=== PATIENT | male | born 1935 | race Caucasian/White ===

== ENCOUNTER 2017-09-07 21:36 | Emergency (ER) | payer MEDICARE, OTHER ==
[2017-09-07 21:51] VITALS: BP 158/70
--- NOTE | 2017-09-08 00:38 | EDM.PDOC ---
ED HPI GENERAL MEDICAL PROBLEM - General Chief Complaint: Respiratory Problem Stated Complaint: OUT OF BREATH Time Seen by Provider: 09/07/17 23:04 Source of Information: Reports: Patient, Family (), RN Notes Reviewed History Limitations: Reports: No Limitations - History of Present Illness INITIAL COMMENTS - FREE TEXT/NARRATIVE: The patient states that he has had dyspnea at rest as well as dyspnea on exertion for approximately 2 weeks, progressively worsening. He saw his PCP, Dr. Hyman, on 08/25/2017, and was prescribed a seven-day course of prednisone and a Z-Brian. He states that his symptoms significantly improved while he was on prednisone, but that they recurred once the prednisone was finished. He states that he has had a dry cough, and that he has been wheezing. He reports orthopnea, although is currently lying supine on the gurney and states that he is comfortable. No recent fever. The patient denies recent lower extremity edema. The patient states that he was given a presumptive diagnosis of COPD around 2004 , following nasal polyp surgery. He has been prescribed albuterol by MDI and Xopenex by nebulizer, along with Advair, but states that he is noncompliant with these medications. He states that due to his worsening symptoms, however, he restarted using his Advair twice a day over the last 2 days, and his Xopenex twice a day for the past 2-3 days. He states that he used his albuterol MDI twice today, however, when I asked him to demonstrate his use, he was not using it properly, at all. The patient states that he has not previously been evaluated by a [facility] , and has not previously undergone pulmonary function tests. The patient states that he did not received an influenza vaccine this season. The patient's PCP is Dr. Hyman. - Related Data Allergies Allergy/AdvReac Type Severity Reaction Status Date / Time perfume Allergy Sneezing Uncoded 09/07/17 21:47 Home Meds: Home Meds Allopurinol [Zyloprim] 100 mg PO DAILY 11/24/16 [History] Losartan/Hydrochlorothiazide [Losartan-HCTZ 50-12.5 MG] 1 each PO DAILY [History] Advair Inhaler. 1 puff INH BID 09/07/17 [History] Past Medical History Cardiovascular History: Reports: High Cholesterol (untreated), Hypertension ( noncompliant with medication) Respiratory History: Reports: COPD (Suspected, not confirmed. Noncompliant with medications.) Gastrointestinal History: Reports: PUD Genitourinary History: Reports: Chronic Renal Insuffiency Musculoskeletal History: Reports: Gout (suspected, not confirmed) - Past Surgical History HEENT Surgical History: Reports: Cataract Surgery, Naso-Sinus Surgery (nasal polyps, 2005), Oral Surgery ([place] teeth extraction) GI Surgical History: Reports: Hernia, Abdominal (dave-umbilical), Hernia, Inguinal (right) Musculoskeletal Surgical History: Reports: Knee Replacement (right) Social & Family History - Family History Family Medical History: Noncontributory - Tobacco Use Smoking Status *Q: Former Smoker Years of Tobacco use: 15 Packs/Tins Daily: 0.5 Month Tobacco Last Used: Quit 1976 Second Hand Smoke Exposure: No - Caffeine Use Caffeine Use: Reports: None Other Caffeine Use: has a soda every once in awhile - Alcohol Use Alcohol Use History: No - Recreational Drug Use Recreational Drug Use: No - Living Situation & Occupation Living situation: Reports: , with Spouse Occupation: Employed ([employer]) ED ROS GENERAL - Review of Systems Review Of Systems: See Below Constitutional: Reports: No Symptoms. Denies: Fever HEENT: Reports: No Symptoms Respiratory: Reports: Shortness of Breath (as per the HPI), Wheezing (as per the HPI), Cough (as per the HPI) Cardiovascular: Reports: No Symptoms, Dyspnea on Exertion (as per the HPI) Endocrine: Reports: No Symptoms GI/Abdominal: Reports: No Symptoms : Reports: No Symptoms Musculoskeletal: Reports: No Symptoms Skin: Reports: No Symptoms Neurological: Reports: No Symptoms Psychiatric: Reports: No Symptoms Hematologic/Lymphatic: Reports: No Symptoms Immunologic: Reports: No Symptoms ED EXAM, GENERAL - Physical Exam Exam: See Below Exam Limited By: No Limitations General Appearance: Alert, WD/WN, No Apparent Distress Eye Exam: Bilateral Eye: Normal Inspection Ears: Normal External Exam, Hearing Grossly Normal Nose: Normal Inspection, No Blood Throat/Mouth: Normal Inspection, Normal Lips, Normal Voice, No Airway Compromise Head: Atraumatic, Normocephalic Neck: Normal Inspection, Full Range of Motion Respiratory/Chest: No Respiratory Distress, No Accessory Muscle Use, Decreased Breath Sounds, Prolonged Expiration (SLIGHT, if any). No: Crackles, Rhonchi, Wheezing Cardiovascular: Normal Peripheral Pulses, Regular Rate, Rhythm, No Gallop, No JVD, No Murmur, No Rub Peripheral Pulses: 4+: Radial (R), Femoral (L) GI/Abdominal: Normal Bowel Sounds, Soft, Non-Tender, No Organomegaly, No Distention, No Abnormal Bruit, No Mass (Male) Exam: Deferred Rectal (Males) Exam: Deferred Back Exam: Normal Inspection, Full Range of Motion, NT Extremities: Normal Inspection, Normal Range of Motion, Non-Tender, Normal Capillary Refill, Other (1-2+ pitting pretibial edema bilaterally) Neurological: Alert, Oriented, Normal Cognition, No Motor/Sensory Deficits Psychiatric: Normal Affect Skin Exam: Warm, Dry, Intact, Normal Color, No Rash EKG INTERPRETATION EKG Date: 09/08/17 Time: 00:01 Rhythm: Other (Sinus bradycardia) Rate (Beats/Min): 59 [place]: Normal P-Wave: Present QRS: Normal ST-T: Normal QT: Normal Comparison: NA - No Prior EKG Course - Vital Signs Last Recorded V/S: Last Vital Signs Temp 36.9 C 09/07/17 21:47 Pulse 64 09/07/17 21:47 Resp 20 09/07/17 21:47 BP 158/70 H 09/07/17 21:47 Pulse Ox 92 L 09/07/17 21:47 - Orders/Labs/Meds Orders: Active Orders 24 hr Category Date Time Status EKG Documentation Completion [RC] STAT Care 09/07/17 23:30 Active Ang Chest [CT] Stat Exams 09/08/17 01:06 Taken Chest 2V [CR] Stat Exams 09/07/17 23:30 Ordered CULTURE BLOOD [BC] Stat Lab 09/07/17 23:50 Received CULTURE BLOOD [BC] Stat Lab 09/07/17 23:57 Received Sodium Chloride 0.9% [Normal Saline] 1,000 ml Med 09/08/17 01:15 Active IV ASDIRECTED Sodium Chloride 0.9% [Normal Saline] 100 ml Med 09/08/17 01:45 Active IV ASDIRECTED Sodium Chloride 0.9% [Saline Flush] Med 09/08/17 01:31 Active 10 ml FLUSH ONETIME PRN Blood Culture x2 Reflex Set [OM.PC] Stat Oth 09/07/17 23:30 Ordered Medication Orders Sodium Chloride (Normal Saline) 1,000 mls @ 150 mls/hr IV ASDIRECTED RONALD Last Admin: 09/08/17 01:14 Dose: 150 mls/hr Sodium Chloride (Normal Saline) 100 mls @ 80 mls/hr IV ASDIRECTED RONALD Last Admin: 09/08/17 01:42 Dose: 80 mls/hr Sodium Chloride (Saline Flush) 10 ml FLUSH ONETIME PRN PRN Reason: IV FLUSH Last Admin: 09/08/17 01:42 Dose: 10 ml Labs: Laboratory Tests 09/07/17 09/07/17 09/07/17 Range/Units 23:38 23:57 23:57 WBC 6.85 (4.23-9.07) K/mm3 RBC 3.77 L (4.63-6.08) M/mm3 Hgb 12.0 L (13.7-17.5) gm/L Hct 36.4 L (40.1-51.0) % MCV 96.6 H (79.0-92.2) fl MCH 31.8 (25.7-32.2) pg MCHC 33.0 (32.2-35.5) g/dl RDW Std Deviation 45.1 H (35.1-43.9) fL Plt Count 135 L (163-337) K/mm3 MPV 9.9 (9.4-12.3) fl Neutrophils % (Manual) 62 H (40-60) % Band Neutrophils % 0 (0-10) % Lymphocytes % (Manual) 14 L (20-40) % Atypical Lymphs % 0 % Monocytes % (Manual) 11 H (2-10) % Eosinophils % (Manual) 12 H (0.8-7.0) % Basophils % (Manual) 1 (0.2-1.2) Platelet Estimate Adequate Plt Morphology Comment Normal RBC Morph Comment Normal PT 10.1 (8.0-13.0) SECONDS INR 0.93 APTT 27 (22-36) SECONDS D-Dimer, Quantitative 1.13 H (0.19-0.59) mg/L Puncture Site Rt brachial ABG pH 7.40 (7.35-7.45) ABG pCO2 39.6 (35.0-45.0) mmHg ABG pO2 64.0 L (80.0-100.0) mmHg ABG HCO3 23.9 (22.0-26.0) meq/L ABG O2 Saturation 90.6 L (96.0-97.0) % ABG Base Excess -0.3 (-2-2.0) A-a Gradient 21 mmHg FiO2 21.00 (21.00-100.00) % Sodium (136-145) mEq/L Potassium (3.5-5.1) mEq/L Chloride (98-107) mEq/L Carbon Dioxide (21-32) mEq/L Anion Gap (5-15) BUN (7-18) mg/dL Creatinine (0.7-1.3) mg/dL Est Cr Clr Drug Dosing mL/min Estimated GFR (MDRD) (>60) mL/min BUN/Creatinine Ratio (14-18) Glucose (83-115) mg/dL Lactic Acid (0.4-2.0) mmol/L Calcium (8.5-10.1) mg/dL Total Bilirubin (0.2-1.0) mg/dL AST (15-37) U/L ALT (16-63) U/L Alkaline Phosphatase (46-116) U/L Troponin I (0.00-0.056) ng/mL NT-Pro-B Natriuret Pep (0-450) pg/mL Total Protein (6.4-8.2) g/dl Albumin (3.4-5.0) g/dl Globulin gm/dL Albumin/Globulin Ratio (1-2) 09/07/17 09/07/17 Range/Units 23:57 23:57 WBC (4.23-9.07) K/mm3 RBC (4.63-6.08) M/mm3 Hgb (13.7-17.5) gm/L Hct (40.1-51.0) % MCV (79.0-92.2) fl MCH (25.7-32.2) pg MCHC (32.2-35.5) g/dl RDW Std Deviation (35.1-43.9) fL Plt Count (163-337) K/mm3 MPV (9.4-12.3) fl Neutrophils % (Manual) (40-60) % Band Neutrophils % (0-10) % Lymphocytes % (Manual) (20-40) % Atypical Lymphs % % Monocytes % (Manual) (2-10) % Eosinophils % (Manual) (0.8-7.0) % Basophils % (Manual) (0.2-1.2) Platelet Estimate Plt Morphology Comment RBC Morph Comment PT (8.0-13.0) SECONDS INR APTT (22-36) SECONDS D-Dimer, Quantitative (0.19-0.59) mg/L Puncture Site ABG pH (7.35-7.45) ABG pCO2 (35.0-45.0) mmHg ABG pO2 (80.0-100.0) mmHg ABG HCO3 (22.0-26.0) meq/L ABG O2 Saturation (96.0-97.0) % ABG Base Excess (-2-2.0) A-a Gradient mmHg FiO2 (21.00-100.00) % Sodium 144 (136-145) mEq/L Potassium 3.8 (3.5-5.1) mEq/L Chloride 108 H (98-107) mEq/L Carbon Dioxide 25 (21-32) mEq/L Anion Gap 14.8 (5-15) BUN 27 H (7-18) mg/dL Creatinine 1.5 H (0.7-1.3) mg/dL Est Cr Clr Drug Dosing 40.56 mL/min Estimated GFR (MDRD) 45 (>60) mL/min BUN/Creatinine Ratio 18.0 (14-18) Glucose 100 (83-115) mg/dL Lactic Acid 0.9 (0.4-2.0) mmol/L Calcium 8.9 (8.5-10.1) mg/dL Total Bilirubin 0.5 (0.2-1.0) mg/dL AST 18 (15-37) U/L ALT 21 (16-63) U/L Alkaline Phosphatase 86 (46-116) U/L Troponin I < 0.017 (0.00-0.056) ng/mL NT-Pro-B Natriuret Pep 94 (0-450) pg/mL Total Protein 6.8 (6.4-8.2) g/dl Albumin 3.3 L (3.4-5.0) g/dl Globulin 3.5 gm/dL Albumin/Globulin Ratio 0.9 L (1-2) Meds: Medications Generic Name Dose Route Start Last Admin Trade Name Freq PRN Reason Stop Dose Admin Sodium Chloride 1,000 mls @ 150 mls/hr 09/08/17 01:15 09/08/17 01:14 Normal Saline IV 150 mls/hr ASDIRECTED RONALD Administration Sodium Chloride 100 mls @ 80 mls/hr 09/08/17 01:45 09/08/17 01:42 Normal Saline IV 80 mls/hr ASDIRECTED RONALD Administration Sodium Chloride 10 ml 09/08/17 01:31 09/08/17 01:42 Saline Flush FLUSH 10 ml ONETIME PRN Administration IV FLUSH Discontinued Medications Generic Name Dose Route Start Last Admin Trade Name Freq PRN Reason Stop Dose Admin Iopamidol 100 ml 09/08/17 01:31 09/08/17 01:42 Isovue-370 (76%) IVPUSH 09/08/17 01:32 70 ml ONETIME ONE Administration - Re-Assessments/Exams Free Text/Narrative Re-Assessment/Exam: 09/08/17 00:22 Two-view chest radiograph appears to be grossly normal. Cardiac silhouette is within normal limits. No pulmonary vascular congestion. No pleural effusions. No focal infiltrate, although there may be a small amount of atelectasis at the right base. No pneumothorax. Formal read per the Radiologist pending. 09/08/17 01:07 The patient's D-dimer has returned elevated at 1.13. This could be the result of chronic kidney disease, as his BUN/Cr is elevated at 27/1.5, however, I cannot rule out a PE. I have therefore ordered a CT angiogram of the chest to evaluate for PE, along with IV fluid. 09/08/17 01:58 CT angiogram of the chest is read by [facility] as: 1. No evidence of pulmonary emboli 2. Mild pulmonary fibrotic changes 3. Mild postinflammatory changes in the lung bases 4. Cholelithiasis 5 hepatic cysts 6. Small hiatal hernia 09/08/17 02:26 Test results discussed with the patient and his . Today's workup is, for the most part, unremarkable. It does not appear that the patient is suffering from a COPD exacerbation, as he did not have prolonged exhalation or wheezes on examination, and his ABG does not show an elevated CO2 level, indeed, it does not appear that the patient even has COPD, as no COPD changes were seen on either the chest radiograph or CT scan. The CT scan, however, did find pulmonary scarring and mucus plugging, which is what I suspect is causing the patient's symptoms. I am therefore recommending that the patient continue using his Advair twice a day, and if he has worsening shortness of breath, he can try the Xopenex nebulizer, but if it does not work, to not use it. I'm recommending that he not use the albuterol MDI, as this technique is so poor that no medication would actually get into his lungs. We discussed the option of a spacer chamber, but this would not work for him, as he would not be able to fit it in his pocket when out of the house. I will discharge the patient home with a referral to a [facility]. As he has chronic kidney disease, and just received iodinated contrast, I recommended that he stay well hydrated for the next week. Departure - Departure Time of Disposition: 02:30 Disposition: Home, Self-Care 01 Condition: Good Clinical Impression: Shortness of breath, Pulmonary fibrosis, Chronic kidney disease - Discharge Information Referrals: Cory Multani MD [Primary Care Provider] - Varun Merchant MD [Ordering Only Provider] - Forms: ED Department Discharge Additional Instructions: You were seen in the emergency room for shortness of breath and a dry cough. Workup in the ER included blood work, 2 sets of blood cultures, an arterial blood gas, an influenza swab, an ECG, a chest x-ray, and a CT angiogram of your chest. Your workup found that you have mild impairment of your kidneys, and scarring of your lungs with mucous plugs. The remainder of your workup was unremarkable. You do not have pneumonia. You have not had a heart attack. You do not have a blood clot in your lungs. You do not have congestive heart failure. You do not have influenza. It is important that you stay well hydrated for the next week. Make sure that your urine is light, like lemonade, not dark, like apple juice. Your symptoms are MOST LIKELY due to lung scarring and mucous plugging. We recommend that you continue taking the Advair twice a day, as prescribed. For worsening shortness of breath, you can try using the Xopenex by nebulizer, but if it is not working, you do not need to continue to use it. Try to avoid exposure to dust as much as possible. Follow-up with the [facility] (lung doctor) Dr. Merchant at the next available appointment. If any other problems, please do not hesitate to return to the ER. - My Orders Last 24 Hours: My Active Orders 09/07/17 23:30 EKG Documentation Completion [RC] STAT Chest 2V [CR] Stat Blood Culture x2 Reflex Set [OM.PC] Stat 09/07/17 23:50 CULTURE BLOOD [BC] Stat 09/07/17 23:57 CULTURE BLOOD [BC] Stat 09/08/17 01:06 Ang Chest [CT] Stat 09/08/17 01:15 Sodium Chloride 0.9% [Normal Saline] 1,000 ml IV ASDIRECTED 09/08/17 01:31 Sodium Chloride 0.9% [Saline Flush] 10 ml FLUSH ONETIME PRN 09/08/17 01:45 Sodium Chloride 0.9% [Normal Saline] 100 ml IV ASDIRECTED - Assessment/Plan Last 24 Hours: My Active Orders 09/07/17 23:30 EKG Documentation Completion [RC] STAT Chest 2V [CR] Stat Blood Culture x2 Reflex Set [OM.PC] Stat 09/07/17 23:50 CULTURE BLOOD [BC] Stat 09/07/17 23:57 CULTURE BLOOD [BC] Stat 09/08/17 01:06 Ang Chest [CT] Stat 09/08/17 01:15 Sodium Chloride 0.9% [Normal Saline] 1,000 ml IV ASDIRECTED 09/08/17 01:31 Sodium Chloride 0.9% [Saline Flush] 10 ml FLUSH ONETIME PRN 09/08/17 01:45 Sodium Chloride 0.9% [Normal Saline] 100 ml IV ASDIRECTED
[2017-09-08] MEDS ORDERED: Sodium Chloride 0.9% 1,000 ML IV SCH (01:15)
[2017-09-08] MEDS ORDERED: Iopamidol 755 Mg/ML 100 ML Bottle IVPUSH ONE (01:31)
[2017-09-08] MEDS ORDERED: Sodium Chloride 0.9% 10 ML Syringe FLUSH PRN (01:31)
[2017-09-08] MEDS ORDERED: Sodium Chloride 0.9% 100 ML IV SCH (01:45)
--- NOTE | 2017-09-09 11:00 | CR ---
Chest: Two views of the chest were obtained. Comparison: No prior chest x-ray. Heart size is within normal limits. Mild interstitial changes are seen compatible with fibrosis. Lungs are hyperinflated compatible with emphysematous change. Bony structures appear within normal limits for the patient's age. Impression: 1. Emphysematous change and mild interstitial fibrosis. 2. Nothing acute is appreciated on two-view chest x-ray. Diagnostic code #2
--- NOTE | 2017-09-09 11:00 | CT ---
CT chest Technique: Multiple axial sections were obtained from above the lung apices inferiorly through the lung bases. Intravenous contrast was utilized. Study has been performed as a pulmonary angiogram protocol. Comparison: No prior chest CT, prior chest x-ray performed on 09/07/17. Findings: Pulmonary arteries are well-opacified. No filling defects are seen to indicate pulmonary embolism. Small mediastinal lymph nodes are seen which are felt to be within normal limits. No axillary adenopathy is identified. Minimal coronary artery calcification is seen. Cysts are seen within the liver. Small hiatal hernia is noted. Interstitial change is seen within both lungs, worse within both lung bases compatible with fibrosis. Emphysematous change is also present. No acute appearing pulmonary densities are appreciated. No pleural effusions are seen. Questionable gallstone seen within the gallbladder. Impression: 1. No findings of pulmonary embolism. 2. Other incidental findings as noted above. Nothing acute is appreciated on CT study of the chest. Diagnostic code #2 I agree with preliminary report issued by [employer] ([facility] report finalized on 09/08/17, 2:54 AM Central Time)
== END 2017-09-08 02:50 | disposition home or self-care (01) ==
LOC: JD.ED 21:36
DX: J84.10 Pulmonary fibrosis, unspecified (principal); I12.9 Hypertensive chronic kidney disease with stage 1 through stage 4 chronic kidney disease, or unspecified chronic kidney disease; N18.9 Chronic kidney disease, unspecified; Z79.899 Other long term (current) drug therapy; Z87.891 Personal history of nicotine dependence
CPT/HCPCS: 36415; 36600; 71020; 71275; 80053; 82803; 83605; 83880; 84484; 85025; 85379; 85610; 85730; 87040; 87804; 93005; 96360; 99285; J7030; J7040; J7050; Q9967; 93010; 99284-25

== ENCOUNTER 2023-10-30 14:30 | Emergency (ER) | payer MEDICARE, OTHER ==
[2023-10-30 16:00] LABS: BASOPHILS PERCENT AUTO 0.4 % (0.0-1.0); EOSINOPHILS ABSOLUTE AUTO 1.4 K/mm3 (0.0-0.4); EOSINOPHILS PERCENT AUTO 21.3 % (0.0-6.0); HEMATOCRIT 27.8 % (42.0-52.0); IMMATURE GRAN ABSOLUTE AUTO 0.02 K/mm3 (0.00-0.05); IMMATURE GRAN PERCENT AUTO 0.3 % (0.0-0.4); LYMPHOCYTES ABSOLUTE AUTO 1.3 K/mm3 (1.0-4.8); LYMPHOCYTES PERCENT AUTO 19.6 % (24.0-44.0); MEAN CORPUSCULAR HEMOGLOBIN 34.6 pg (28.0-32.0); MEAN CORPUSCULAR HGB CONC 32.4 g/dl (32.0-36.0); MEAN CORPUSCULAR VOLUME 106.9 fl (83.0-99.0); MEAN PLATELET VOLUME 8.8 fl (9.4-12.4); MONOCYTES ABSOLUTE AUTO 0.6 K/mm3 (0.0-0.8); MONOCYTES PERCENT AUTO 8.8 % (0.0-8.0); NEUTROPHILS ABSOLUTE AUTO 3.3 K/mm3 (1.8-7.7); NEUTROPHILS PERCENT AUTO 49.6 % (41.0-71.0); PLATELET COUNT,PLT 106 K/mm3 (150-400)
[2023-10-30 16:25] LABS: A/G RATIO 0.8 (1-2); ANION GAP 14.7 (5-15); BILIRUBIN TOTAL 0.4 mg/dL (0.2-1.0); BUN/CREATININE RATIO 19.1 (14-18); CALCIUM 8.4 mg/dL (8.5-10.1); CREATININE 2.2 mg/dL (0.7-1.3); EST CRCL DRUG DOSING (CG) 24.89 mL/min; POTASSIUM,K 4.7 mEq/L (3.5-5.1); PROTEIN TOTAL,TP 6.8 g/dl (6.4-8.2)
[2023-10-30 16:46] LABS: INR 0.99; PROTHROMBIN TIME 10.6 SECONDS (9.7-12.0)
[2023-10-30] MEDS ORDERED: Apixaban 5 MG Tab PO ONE (17:54)
[2023-10-30 18:11] VITALS: BP 139/59; PULSE 60
== END 2023-10-30 18:10 | disposition home or self-care (01) ==
LOC: JD.ED 14:30
DX: I82.401 Acute embolism and thrombosis of unspecified deep veins of right lower extremity (principal); I82.411 Acute embolism and thrombosis of right femoral vein; I82.431 Acute embolism and thrombosis of right popliteal vein; I82.451 Acute embolism and thrombosis of right peroneal vein; J44.9 Chronic obstructive pulmonary disease, unspecified; I12.9 Hypertensive chronic kidney disease with stage 1 through stage 4 chronic kidney disease, or unspecified chronic kidney disease; N18.9 Chronic kidney disease, unspecified; E66.9 Obesity, unspecified; Z68.27 Body mass index [BMI] 27.0-27.9, adult; Z91.048 Other nonmedicinal substance allergy status; Z88.8 Allergy status to other drugs, medicaments and biological substances; Z79.899 Other long term (current) drug therapy; Z79.01 Long term (current) use of anticoagulants
CPT/HCPCS: 36415; 80053; 85025; 85610; 93971; 99284; A9270; 99283

== ENCOUNTER 2024-07-19 15:36 | Emergency (ER) | payer MEDICARE, OTHER ==
[2024-07-19 16:07] VITALS: BP 167/68; PULSE 59
[2024-07-19] MEDS: Apixaban 5 MG Tab PO ONE (18:25)
== END 2024-07-19 18:28 | disposition home or self-care (01) ==
LOC: JD.ED 15:36
DX: I82.401 Acute embolism and thrombosis of unspecified deep veins of right lower extremity (principal); Z91.048 Other nonmedicinal substance allergy status; Z88.8 Allergy status to other drugs, medicaments and biological substances; Z79.899 Other long term (current) drug therapy
CPT/HCPCS: 93971; 99283; A9270

== ENCOUNTER 2024-08-08 13:59 | Emergency (ER) | payer MEDICARE, OTHER ==
[2024-08-08] MEDS ORDERED: Sodium Chloride 0.9% 10 ML Syringe FLUSH PRN (15:06)
[2024-08-08] MEDS: Famotidine 20 MG/2 ML SDV IVPUSH ONE (16:00)
[2024-08-08 18:56] VITALS: BP 153/84; PULSE 63
== END 2024-08-08 16:10 ==
LOC: JD.ED 13:59
DX: S00.83XA Contusion of other part of head, initial encounter (principal); S12.090A Other displaced fracture of first cervical vertebra, initial encounter for closed fracture; S12.112A Nondisplaced Type II dens fracture, initial encounter for closed fracture; I10 Essential (primary) hypertension; J44.9 Chronic obstructive pulmonary disease, unspecified; E66.9 Obesity, unspecified; Z68.28 Body mass index [BMI] 28.0-28.9, adult; Z91.048 Other nonmedicinal substance allergy status; W19.XXXA Unspecified fall, initial encounter
CPT/HCPCS: 36415; 70450; 70486; 71045; 72125; 96374; 99285; J3490